=== PATIENT | male | born 1940 | race Caucasian/White ===

== ENCOUNTER 2016-11-28 11:20 | Outpatient (CLI) | payer MEDICARE, OTHER ==
[~2016-11-28] VITALS: Ht 177.8 cm; Wt 81.8 kg
--- NOTE | ~2016-11-28 | HEMODYNAMI ---
PATIENT:JOHANNY JAY MEDICAL RECORD: [id number] : 44 LOCATION:DLondonCAT ADMISSION DATE: 11/28/16 Generatedon:11/28/201614:51 Patient name: JOHANNY JAY Patient #: [id number] SSN: : 1940 Date of study: 11/28/2016 Page: Of Hemodynamic Procedure Report Patient Data Patient Demographics Procedure consent was obtained First Name: JOHANNY Gender: Male Last Name: MISTY : 1940 [facility] Initial: S Age: 76 year(s) Patient #: [id number] Race: Additional ID: [id number] Contact details Address: [address] [place] [address] DRIVE State: [place] City: [facility] Zip code: [address] Past Medical History Allergies: No known allergies Admission Admission Data Admission Date: 11/28/2016 Admission Time: 11:20 Lab Results Lab Result Date: 11/28/2016 Lab Result Time: 0:00 Biochemistry Name Units Result Min Max Creatinine mg/dl 1.2 --(---*)-- 0.6 1.3 CBC Name Units Result Min Max Hemoglobin g/dl 15.2 --(-*--)-- 13.5 17.5 Procedure Procedure Types Cath Procedure Diagnostic Procedure [facility] w/Coronaries PCI Procedure Coronary Stent Initial Miscellaneous Procedures Moderate Sedation up to 45 minutes Procedure Description Procedure Date Procedure Date: 11/28/2016 Procedure Start Time: 14:21 Procedure End Time: 14:50 Procedure Staff Name Function Brendan Ramirez MD Performing Physician Ld Scanlon RT Scrub Harsh Vyas RN Nurse Yamilka Cowart RT Monitor Procedure Data Cath Procedure Fluoroscopy Diagnostic fluoroscopy Total fluoroscopy Time: 8.8 time: 8.8 min min Diagnostic fluoroscopy Total fluoroscopy dose: 917 dose: 917 mGy mGy Contrast Material Contrast Material Type Amount (ml) Isovue 300 150 Entry Location Entry Primary Successful Side Size Upsize Upsize Entry Closure Succes sful Closure Location (Fr) 1 (Fr) 2 (Fr) Remarks Device Remarks Femoral Right 5 Fr 6 Fr Exoseal artery Short Estimated blood loss: 10 ml Diagnostic catheters Device Type Used For End Catheter Placement Cordis 5Fr JL 4.0 Left Coronary Catheter (MP) Angiography Cordis 5Fr 3DRC Catheter Right Coronary (MP) Angiography Cordis 5Fr Pigtail LV Angiography Catheter (MP) Procedure Complications No complications Procedure Medications Medication Administration Route Dosage Oxygen NC 2 l/min Heparin Flush Bag added to field 2 bags (1000units/500ml NS) 0.9% NaCl I.V. 100 ml/hr Fentanyl I.V. 50 mcg Versed I.V. 1 mg Fentanyl I.V. 50 mcg Versed I.V. 1 mg Heparin Bolus I.V. 5000 units Fentanyl I.V. 50 mcg Integrilin (Bolus I.V. 7.3 ml 2mg/ml) Brilinta P.O. 180 mg Hemodynamics Rest HGB: 15.2 (g/dl) Heart Rate: 69 (bpm) Pressure Samples Time Site Value (mmHg) Purpose Heart Use Rate(bpm) 14:29 LV 144/12,39 EDP 53 14:29 AO 142/90(112) Pullback 75 14:29 LV 129/23,18 Pullback 75 Gradients Valve Time Site 1 Site 2 Mean SEP/DFP Peak To Heart Use (mmHg) (sec/min) Peak Rate (mmHg) (bpm) Aortic 14:29 LV AO 0 8 0 75 129/23,18 142/90(112) Calculations Valve P-P Mean Valve Index Valve Source Name Gradient Area Flow (cm2) Aortic 0 0 0 0 Snapshots Pre Cath Intra NCS Post Cath Vital Signs Time Heart Resp SPO2 etCO2 FM1axim NIBP (mmHg) Rhythm Pain Sedation Rate (ipm) (%) (mmHg) (mmHg) Status Level (bpm) 13:58:21 68 18 98 0 0 148/88(123) NSR 0 (11) 10(A) , No pain 14:02:35 72 17 99 0 0 137/85(116) NSR 0 (11) 10(A) , No pain 14:06:46 69 17 99 0 0 126/85(113) NSR 0 (11) 10(A) , No pain 14:10:56 67 16 96 0 0 133/81(115) NSR 0 (11) 9(A) , No pain 14:15:06 78 16 96 0 0 134/86(99) NSR 0 (11) 9(A) , No pain 14:19:14 71 17 95 0 0 139/93(101) NSR 0 (11) 9(A) , No pain 14:23:26 70 19 96 0 0 126/87(108) NSR 0 (11) 9(A) , No pain 14:27:34 72 18 95 0 0 138/88(115) NSR 0 (11) 9(A) , No pain 14:31:48 75 19 97 0 0 128/81(102) NSR 0 (11) 9(A) , No pain 14:36:00 77 18 95 0 0 117/73(104) NSR 0 (11) 9(A) , No pain 14:40:03 75 18 96 0 0 127/85(104) NSR 0 (11) 9(A) , No pain 14:44:12 78 18 98 0 0 122/87(108) NSR 0 (11) 9(A) , No pain 14:47:52 75 18 97 0 0 130/76(101) NSR 0 (11) 9(A) , No pain Medications Time Medication Route Dose Verified Delivered Reason Notes Effectiveness by by 13:58:43 Oxygen NC 2 Harsh Harsh Per physician l/min Asael Vyas RN RN 13:58:53 Heparin Flush added 2 Harsh Harsh used for Bag to bags Asael Vyas RN procedure (1000units/500ml field RN NS) 13:59:03 0.9% NaCl I.V. 100 Ahrsh Harsh Per physician ml/hr Asael Vyas RN RN 14:04:20 Fentanyl I.V. 50 Harsh Harsh for sedation mcg Asael Vyas RN RN 14:04:28 Versed I.V. 1 mg Harsh Harsh for sedation Asael Vysa RN RN 14:08:07 Fentanyl I.V. 50 Harsh Harsh for sedation mcg Asael Vyas RN RN 14:08:12 Versed I.V. 1 mg Harsh Harsh for sedation Asael Vyas RN RN 14:32:33 Heparin Bolus I.V. 5000 Harsh Harsh for units Asael Vyas RN anticoagulation RN 14:32:40 Integrilin I.V. 7.3 Harsh Harsh for wasted (Bolus 2mg/ml) ml Asael Vyas RN antiplatelet 2.7mL of RN therapy integrilin bolus 14:32:40 Fentanyl I.V. 50 [facility] House for sedation mcg Asael Vyas RN RN 14:46:47 Brilinta P.O. 180 [facility] for mg Asael Vyas RN antiplatelet RN therapy Procedure Log Time Note 13:35:05 Harsh Vyas RN sent for patient. Start room use. 13:41:09 Lab Result : Creatinine 1.2 mg/dl 13:41:09 Lab Result : Hemoglobin 15.2 g/dl 13:50:12 Time tracking: Regular hours 13:50:16 Plan of Care:Hemodynamics will remain stable., Cardiac rhythm will remain stable., Comfort level will be maintained., Respiratory function will remain adequate., Patient/ family verbilizes understanding of procedure., Procedure tolerated without complication., Recovers from procedure without complications.. 13:50:29 Patient received from Pre/Post Procedure Room to [facility] 1 Alert and oriented. Tansferred to table in Supine position. 13:50:30 Warm blankets applied, and juan hugger turned on for patient comfort. 13:50:30 Correct patient and procedure confirmed by team. 13:50:32 Signed procedure consent form obtained from patient. 13:50:32 ECG and BP/O2 sat monitors applied to patient. 13:50:33 Full Disclosure recording started 13:57:13 Vital chart was started 13:58:31 Rhythm: sinus rhythm 13:58:43 Oxygen 2 l/min NC was administered by Harsh Vyas RN; Per physician; 13:58:53 Heparin Flush Bag (1000units/500ml NS) 2 bags added to field was administered by Harsh Vyas RN; used for procedure; 13:59:03 0.9% NaCl 100 ml/hr I.V. was administered by Harsh Vyas RN; Per physician; 13:59:15 H&P Date Dictated: 11/21/2016 Within 30 days and on chart., H&P Addendum completed by physician on day of procedure. (MUST COMPLETE FOR ALL OUTPATIENTS). 13:59:16 Pre-procedure instructions explained to patient. 13:59:17 Pre-op teaching completed and patient verbalized understanding. 13:59:19 Family in waiting room. 13:59:24 Patient NPO since Midnight. 13:59:36 Patient allergic to No known allergies 13:59:43 Is the patient allergic to Iodine/contrast media? No. 13:59:45 Is patient on blood thinner?No 13:59:58 Patient diabetic? No. 14:00:03 Previous problem with sedation/anesthesia? No ? 14:00:04 Snore? Yes 14:00:05 Sleep apnea? No 14:00:06 Deviated septum? No 14:00:08 Opens mouth fully? Yes 14:00:09 Sticks out tongue? Yes 14:00:12 Airway obstruction? No ? 14:00:14 Dentures? Yes In 14:00:18 Pre procedure: right dorsailis pedis pulse 2+ Normal; easily identifiable; not easily obliterated 14:00:19 Modified Jaylen's test Ulnar > 7 seconds. 14:00:22 Patient pain scale 0/10 ?. 14:00:26 IV patent on arrival in left hand with 0.9% NaCl at [facility]. 14:00:30 Lab results completed and on chart. 14:00:36 Right groin area was prepped with chlora-prep and draped in sterile fashion 14:00:37 Alarms reviewed by R. N. 14:00:37 Sharps counted by scrub and verified by R.N. 14:00:40 Use device set Femoral Dx 14:00:41 Acist Syringe opened to sterile field. 14:00:42 Bag Decanter opened to sterile field. 14:00:42 Medline Cath Pack opened to sterile field. 14:00:43 Terumo 5Fr [place] Sheath opened to sterile field. 14:00:43 [facility] 260cm J .035 wire opened to sterile field. 14:00:44 Acist Hand Control opened to sterile field. 14:00:45 Acist Manifold opened to sterile field. 14:00:45 Diagnostic Infinity 5Fr Multipack catheter opened to sterile field. 14:00:46 Tegaderm 4 x 4 opened to sterile field. 14:03:39 Final Timeout: patient, procedure, and site verified with staff and physician. All members of the team are in agreement. 14:03:43 Right groin site verified by team. 14:03:50 Physical assessment completed. ASA score P 2 - A patient with mild systemic disease as per Brendan Ramirez MD. 14:03:53 Sedation plan: IV Moderate Sedation Versed, Fentanyl 14:04:00 Baseline sample Acquired. 14:04:20 Fentanyl 50 mcg I.V. was administered by Harsh Vyas RN; for sedation; 14:04:28 Versed 1 mg I.V. was administered by Harsh Vyas RN; for sedation; 14:08:07 Fentanyl 50 mcg I.V. was administered by Harsh Vyas RN; for sedation; 14:08:12 Versed 1 mg I.V. was administered by Harsh Vyas RN; for sedation; 14:20:12 Procedure started. 14:21:09 Local anesthetic to right femoral artery with Lidocaine 2% by Brendan Ramirez MD.INITIAL ACCESS ONLY 14:21:48 A 5 Fr sheath was inserted into the Right Femoral artery 14:23:45 A Cordis 5Fr JL 4.0 Catheter (MP) was advanced over the wire and used for Left Coronary Angiography. 14:27:11 Catheter removed. 14:27:17 A Cordis 5Fr 3DRC Catheter (MP) was advanced over the wire and used for Right Coronary Angiography. 14:27:36 Catheter removed. 14:28:34 A Cordis 5Fr Pigtail Catheter (MP) was advanced over the wire and used for LV Angiography. 14:29:28 LV gram done using SHIRLEY 14:29:32 Injector settings: Ml/sec: 10, Volume: 20, 14:29:38 EF : 25 % 14:29:59 Catheter removed. 14:30:12 [facility] BasixCompak Inflation Kit opened to sterile field. 14:30:30 Terumo 6Fr [place] Sheath opened to sterile field. 14:30:30 Gaytan [place] 300cm 0.014 guide wire opened to sterile field. 14:31:03 Medtronic Launcher 6Fr EBU 4.0 guide catheter opened to sterile field. 14:31:09 Sheath upsized to a 6 Fr Short. 14:31:22 6 Fr EBU 4.0 guide catheter was inserted over the wire 14:32:33 Heparin Bolus 5000 units I.V. was administered by Harsh Vyas RN; for anticoagulation; 14:32:40 Integrilin (Bolus 2mg/ml) 7.3 ml I.V. was administered by Harsh Vyas RN; for antiplatelet therapy; wasted 2.7mL of integrilin bolus 14:32:40 Fentanyl 50 mcg I.V. was administered by Harsh Vyas RN; for sedation; 14:34:09 [place] wire advanced. 14:38:11 Wire removed. unable to cross lesion. 14:38:54 Gaytan Whisper J 300cm 0.014 guide wire opened to sterile field. 14:39:03 Whisper wire advanced. 14:42:40 Inflation Number: 1 A JolieBoxtronic Integrity 3.0 X 15 stent was prepped and advanced across the Mid CX. The stent was deployed at 14 DARCY for 0:30 (min:sec). 14:43:29 Stent catheter was removed intact over wire. 14:43:29 Wire removed. 14:43:30 Guide catheter removed. 14:43:46 Sheath removed intact; hemostasis achieved with Exoseal to the Right Femoral artery. 14:43:53 Cordis 6Fr Exoseal opened to sterile field. 14:43:56 Procedure ended.(Physican Out) 14:44:34 Fluoroscopy time 08.80 minutes. 14:44:38 Flurop Dose total: 917 14:44:38 Fluoroscopy dose: 917 mGy 14:44:42 Contrast amount:Isovue 300 150ml. 14:44:43 Sharps counted by scrub and verified by R.N. 14:44:45 Insertion/operative site no bleeding no hematoma. 14:44:50 Post-op/insertion site Right Femoral artery dressed using a 4 x 4 and Tegaderm. 14:44:53 Post right femoral artery:stable, clean and dry 14:44:57 Post Procedure Pulses reassessed and unchanged 14:45:01 Post-procedure physical assessment completed. ASA score P 2 - A patient with mild systemic disease as per Brendan Ramirez MD. 14:45:04 Post procedure rhythm: unchanged. 14:45:06 Estimated blood loss: 10 ml 14:45:08 Post procedure instruction explained to patient.Patient verbalizes understanding. 14:45:08 Patient needs reinforcement of post procedure teaching. 14:45:21 Procedure type changed to Cath procedure, Diagnostic procedure, LHC, LHC w/Coronaries, PCI procedure, Coronary Stent Initial, Miscellaneous Procedures, Moderate Sedation up to 45 minutes 14:45:25 Procedure Complication : No complications 14:45:29 See physician's report for complete and final results. 14:46:47 Brilinta 180 mg P.O. was administered by Harsh Vyas RN; for antiplatelet therapy; 14:48:01 Procedure and supply charges have been captured, reviewed, submitted and are correct. 14:50:34 Vital chart was stopped 14:50:36 Report given to Pre/Post Procedure Room. 14:50:41 Patient transfered to Pre/Post Procedure Room with Stretcher. 14:50:50 Procedure ended. 14:50:50 Full Disclosure recording stopped 14:50:56 End room use (Document Last) Intervention Summary Intervention Notes Time ActionType Lesion and Equipment Action# Pressure Duration Attributes Used 14:42:40 Place stent Mid CX Medtronic 1 14 00:30 Integrity 3.0 X 15 stent Device Usage Item Name Manufacture Quantity Catalog Hospital Part Current Minimal Lot# / Number Charge Number Stock Stock Serial# Code Acist Acist 1 14459 193242 212504 700016 20 Syringe Medical Systems Inc Bag Microtek 1 2002S 747167 09885 411942 5 Sellbox. Medline Cardinal 1 [id number] 140163 05334 859735 5 Cath Pack Health Terumo 5Fr Terumo 1 QVM574 853695 962478 960499 [address] [place] [address] [facility] 1 292799 275650 935590 726728 30 260cm J .035 wire Acist Hand Acist 1 40290 761590 900575 277603 5 56.com Medical Systems Inc Acist Acist 1 41864 080460 092964 926410 5 Totango Medical Systems Inc Diagnostic Cardinal 1 [id number] 233291 17839 678016 30 Infinity Health 5Fr Multipack catheter Tegaderm 4 3M 1 1626W 001388 520103 851004 5 x 4 Cordis 5Fr Cardinal 1 473979 5 JL 4.0 Health Catheter (MP) Cordis 5Fr Cardinal 1 189963 5 3DRC Health Catheter (MP) Cordis 5Fr Cardinal 1 143003 5 Pigtail Health Catheter (MP) Merit Merit 1 EP2662 039326 638612 930860 15 Geoli.st Classifieds Medical Inflation Kit Terumo 6Fr Terumo 1 CHP315 401639 259422 457687 40 [place] Sheath Guides.co 1 [id number] 958428 018487 236354 1 [place] Vascular 300cm 0.014 guide wire Medtronic Medtronic 1 [id number] 466974 17202 581371 1 Launcher 6Fr EBU 4.0 guide catheter [facility] 1 [id number] 119008 598851 635098 5 Whisper J Vascular 300cm 0.014 guide wire Medtronic Medtronic 1 [id number] 347817 343179 4 [id number] Integrity 3.0 X 15 stent Cordis 6Fr Cardinal 1 EX600 048152 121739 762829 10 [facility] [place] Signature Audit Anderson Stage Time Signature Unsigned Intra-Procedure 11/28/2016 Yamilka 2:51:19 PM Counts RT(R) Signatures Monitor : Yamilka Signature : Counts RT Date : Time : [address] [address]
[2016-11-28] MEDS ORDERED: FLOMAX0.4 MG PO (12:28)
[2016-11-28 12:32] LABS: BASOPHILS 0.3 % (0-2); EOSINOPHILS 4.8 % (0-7); HEMATOCRIT 45.6 % (42.0-54.0); HEMOGLOBIN 15.2 g/dL (13.5-17.5); IMMATURE GRANULOCYTES 0.1 % (0-5); MCHC 33.3 g/dL (31.0-37.0); MCV 89.9 fL (80.0-100.0); MEAN PLATELET VOLUME 10.8 fL (7.4-10.4); MONOCYTES 12.2 % (2-11); NEUTROPHILS 52.6 % (40-80); PLATELET COUNT 230 10x3/uL (130-400); RBC 5.07 10x6/uL (4.20-6.10); RDW 13.8 % (11.5-14.5); WBC 6.8 10x3/uL (4.8-10.8)
[2016-11-28 12:35] VITALS: BP 148/70; Ht 177.8 cm; Wt 81.8 kg
[2016-11-28 12:40] LABS: ANION GAP 13.7 mmol/L (8-16); CALCIUM 9.6 mg/dL (8.5-10.1); CARBON DIOXIDE 29.9 mmol/L (21.0-32.0); CREATININE - SERUM 1.2 mg/dL (0.6-1.3); POTASSIUM - SERUM 4.6 mmol/L (3.5-5.1)
--- NOTE | 2016-11-28 15:15 | NUR ---
RIGHT GROIN CDI, NO HEMATOMA OR BLEEDING NOTED, AT SIDE
[2016-11-28] MEDS ORDERED: HYZAAR 50-12.51 TAB PO (15:28)
[2016-11-28] MEDS ORDERED: BRILINTA90 MG PO (15:28)
--- NOTE | 2016-11-28 15:45 | NUR ---
NO CHANGES TO RIGHT GROIN, AT SIDE
--- NOTE | 2016-11-28 19:00 | NUR ---
IV D'C WITH CATH TIP INTACT, WRITTEN AND VERBAL INSTRUCTIONS GIVEN TO PT AND , UNDERSTOOD. DENIES CHEST PAIN, RIGHT GROIN CDI-NO HEMATOMA OR BLEEDING, SOFT TO TOUCH. D'C HOME
--- NOTE | 2016-11-30 12:52 | OP ---
PATIENT NAME: JOHANNY JAY MEDICAL RECORD: [id number] :44 LOCATION:D.CAT ADMISSION DATE: SURGEON: DO BABCOCK MD DATE OF OPERATION: 11/28/2016 PROCEDURES: Left heart catheterization, selective coronary angiography, right femoral artery approach. CATHETERS: A 5-Pakistani sheath, 5/4 left and right Moshe, 5/4 pig. The procedure was well tolerated. The patient was returned to the nelson, sheath removed. ExoSeal device was placed. FINDINGS: Left ventriculography in 30-degree SHIRLEY view shows global hypokinesis, reduced EF 25%-30%. CORONARY ANATOMY: Left main: Left main is free of disease. LAD: Fills for a short period of time and is totally occluded, fills via vhfg-ek-sete collaterals. CIRCUMFLEX: Large, dominant system with a large OM1, has about 80% stenosis in its mid portion. RIGHT CORONARY ARTERY: Has luminal irregularities. IMPRESSION: Totally occluded left anterior descending, not amenable to intervention. PLAN: Intervention of the circumflex momentarily. DESCRIPTION: A 5-Pakistani sheath was changed for a 6-Pakistani sheath. An XB LAD guiding catheter provided good guide catheter support followed by initially, [place] XT wire has unable to cross into the OM. Next, we placed a 300 cm Whisper wire, crossed the 80% stenosis down to this portion of vessel. Stent deployed was a 3.0 x 15 mm Integrity [id number] stent up to 14 atmospheres for 45 seconds. Final injection shows excellent resolution of 80% stenosis, no significant residual. EMELYN flow was 3 throughout the procedure. Integrilin was used in the case. Sheath closed with ExoSeal device. Brilinta was loaded in the lab. The patient was started on losartan for ischemic cardiomyopathy. Further recommendations based on clinical course. TRANSINT:[id number] Voice Confirmation ID: [id number] DOCUMENT ID: [id number] DO BABCOCK MD at 1252 CC: [id number] DICTATION DATE: 11/28/16 1451 LEGAL PARAPROFESSIONAL: 11/29/16 0036 DEP CLI 11/28/16 [place] [id number] [place] [address]
== END 2016-11-28 19:20 | disposition home or self-care (01) ==
LOC: D.CATH 11:20
PROVIDERS: Internal Medicine Interventional Cardiology
DX: I25.119 Atherosclerotic heart disease of native coronary artery with unspecified angina pectoris (principal); I25.5 Ischemic cardiomyopathy

== ENCOUNTER → 2017-01-10 10:15 | Outpatient (CLI) | payer MEDICARE, OTHER ==
[2016-11-28 12:35] VITALS: BMI 25.8
[~2017-01-10 10:15] MED LIST: BRILINTA90 MG PO; FLOMAX0.4 MG PO; HYZAAR 50-12.51 TAB PO
== END | disposition home or self-care (01) ==
LOC: D.MRI 10:15
DX: M54.16 Radiculopathy, lumbar region (principal)

== ENCOUNTER 2017-02-07 11:24 | Day surgery (SDC) | payer MEDICARE, OTHER ==
[2017-02-06 17:09] LABS: BASOPHILS 0.5 % (0-2); EOSINOPHILS 3.5 % (0-7); HEMATOCRIT 45.9 % (42.0-54.0); HEMOGLOBIN 15.4 g/dL (13.5-17.5); IMMATURE GRANULOCYTES 0.3 % (0-5); LYMPHOCYTES 25.6 % (15-50); MCH 30.3 pg (26.0-34.0); MCHC 33.6 g/dL (31.0-37.0); MCV 90.4 fL (80.0-100.0); MEAN PLATELET VOLUME 10.3 fL (7.4-10.4); MONOCYTES 10.9 % (2-11); NEUTROPHILS 59.2 % (40-80); RBC 5.08 10x6/uL (4.20-6.10); RDW 13.8 % (11.5-14.5); WBC 9.5 10x3/uL (4.8-10.8)
[2017-02-06 17:32] LABS: ANION GAP 12.6 mmol/L (8-16); CARBON DIOXIDE 29.5 mmol/L (21.0-32.0); CREATININE - SERUM 1.1 mg/dL (0.6-1.3); POTASSIUM - SERUM 4.1 mmol/L (3.5-5.1)
[2017-02-06 17:36] LABS: PLATELET COUNT 321 10x3/uL (130-400)
[2017-02-06 17:37] LABS: APPEARANCE CLEAR (CLEAR); COLOR YELLOW (YELLOW); SPECIFIC GRAVITY 1.015 (1.005-1.020)
[2017-02-06 17:38] LABS: BILIRUBIN NEGATIVE (NEGATIVE); GLUCOSE NEGATIVE (NEGATIVE); KETONE NEGATIVE (NEGATIVE); LEUKOCYTE ESTERASE NEGATIVE (NEGATIVE); NITRITE NEGATIVE (NEGATIVE); PROTEIN NEGATIVE (NEGATIVE); UROBILINOGEN NORMAL (NORMAL)
[~2017-02-07] VITALS: Ht 180.3 cm; Wt 81.8 kg
[2017-02-07 10:50] VITALS: BP 132/82; BMI 25.1
[~2017-02-07 11:24] MED LIST changes: +ASPIRIN81 MG PO
--- NOTE | 2017-02-07 19:09 | HP ---
PATIENT: JOHANNY JAY MEDICAL RECORD: [id number] ACCOUNT: [id number] LOCATION:D.MS Danielle2228 : 44 ADMISSION DATE: 02/07/17 HISTORY AND PHYSICAL EXAMINATION CHIEF COMPLAINT: Back pain. HISTORY OF PRESENT ILLNESS: This is a pleasant elderly white male, who presented to our office with right lower extremity pain. He rates his pain 9/10 for the past month, throbbing, constant. He has numbness in his right great toe and calf associated with weakness. He has tried PT injections and has had no relief for pain. PAST MEDICAL HISTORY: Significant for a stent being placed in July of 2016 with no recurrent chest pain. PAST SURGICAL HISTORY: The stent and a right shoulder repair. SOCIAL HISTORY: He is . He denies any alcohol or tobacco use. FAMILY DOCTOR: Dr. Tobin and Dr. Tobin, Dr. Ramirez for cardiology. ALLERGIES: None. CURRENT MEDICATIONS: Tamsulosin for prostate. REVIEW OF SYSTEMS: He denies any recent chest pain, shortness of breath or weight changes. PHYSICAL EXAMINATION: GENERAL: This is an alert, oriented male in no acute distress. HEENT: Normocephalic. Pupils are equal, reactive to light. CHEST: Clear to auscultation. HEART: S1 and S2. ABDOMEN: Soft. EXTREMITIES: He has a slight limp in his right leg. He has decreased sensation in the right leg. His right dorsiflexion strength is 4/5. IMPRESSION: Right L4-L5 herniated nucleus pulposus. PLAN: A right L4-L5 laminectomy and discectomy. He has been told to hold his aspirin. The risk and benefits of surgery have been explained to him in detail. Risks include bleeding, failure to relieve symptoms, problems with anesthesia and . Time was allowed for questions, questions were answered. The patient wishes to proceed with surgery. TRANSINT:[id number] Voice Confirmation ID: [id number] DOCUMENT ID: [id number] Dictated By: LAURI GRANADOS I have interviewed/examined the above patient and agree with these documented findings. HISTORY AND PHYSICAL [id number] JOHANNY JAY MIGUEL ÁNGEL WISE MD at 1909 at 1031 CC: [id number] DICTATION DATE: 02/06/17 1612 HEALTH INFORMATICS SPECIALIST: 02/06/17 1837 [address] [place] [id number] [place] [id number]
[2017-02-07 19:57] VITALS: BP 151/86
[2017-02-07] MEDS ORDERED: MULTIPLE VITAMI1 TA1 PO (19:57)
--- NOTE | 2017-02-07 20:13 | NUR ---
RECIEVED FROM OUTPATIENT OR VIA BED. ALERT,ORIENTED X 3. RESP EVEN AND UNALBORED. IV INFUSING TO RIGHT WRIST AT 50 CC/HR WITHOUT REDNESS OR EDEMA NOTED. INCISION TO LOWER BACK WITHOUT DRAINAGE NOTED. MZAA. NO DEFICITES NOTED. CL IN REACH. AT BEDSIDE.
[2017-02-07 23:04] VITALS: BP 138/78; Ht 180.3 cm; Wt 81.8 kg
--- NOTE | 2017-02-07 23:10 | NUR ---
RN NOTE: ADMISSION ASSESSMENT COMPLETE. O2 TURNED DOWN TO 1L VIA NC...WEANING OFF...SPO2 99% AT THIS ASSESSMENT. ADDED HUMIDIFICATION TO O2 PER C/O NASAL DRYNESS. INCISION ON LUMBAR REGION OF BACK WELL APPROXIMATED WITH DERMABOND WITH NO DRAINAGE. WILL CONTINUE TO MONITOR CLOSELY FOR NEEDS. CALL LIGHT WITHIN REACH.
[2017-02-08 04:00] VITALS: BP 122/72
--- NOTE | 2017-02-08 04:09 | NUR ---
RESTING QUIETLY. NO DISTRESS NOTED. CL IN REACH
--- NOTE | 2017-02-08 06:34 | OP ---
PATIENT NAME: CYRIL JAY MEDICAL RECORD: [id number] :44 LOCATION:D.MS Castro.2228 ADMISSION DATE: SURGEON: MIGUEL ÁNGEL WISE MD DATE OF OPERATION: 02/07/2017 PREOPERATIVE DIAGNOSIS: Right L5 radiculopathy. POSTOPERATIVE DIAGNOSIS: Right L5 radiculopathy. PROCEDURES PERFORMED: 1. Right L4 laminotomy for L4-L5 discectomy. 2. Use of intraoperative microscope with microdissection techniques. FINDINGS: A bulging disc; no durotomy. ESTIMATED BLOOD LOSS: Minimal. COMPLICATIONS: None apparent. SPECIMENS: None. HISTORY OF PRESENT ILLNESS: Cyril Jay is a pleasant 76-year-old gentleman who presented as an outpatient with severe right lower extremity pain consistent with L5 predominant radiculopathy. Imaging was consistent with bulging disc on the right side at L4-L5 with nerve root compression. I had an extensive discussion with him regarding risks, benefits and options of continued conservative therapy versus operative intervention in the form of a microdiscectomy and nerve root decompression. He opted to undergo the operative intervention. The risks and benefits discussed with him. PROCEDURE: Mr. Jay was identified by anesthesia team, transferred to operative theater where general endotracheal anesthesia commenced and all appropriate lines and tubes were placed. He was gently transferred over in the prone position on the operative table with his chest on chest bolsters. His pressure points were padded. His arms were placed in superman position and eyes were accounted for by anesthesia team. The lumbar region was prepped and draped in usual sterile fashion. A timeout was performed and agreed to by those present prior to start of procedure. The patient did receive IV antibiotics prior to the start of the procedure. Using a spinal needle, the L4-L5 laminar facet junction was identified. An incision was marked and infiltrated with 1% lidocaine with epinephrine. A #10 blade was used to make the initial skin incision. Bovie electrocautery was used to perform a right L4-L5 hemilaminotomy, medial facetectomy exposure. A hemilaminectomy self-retaining retractor was then introduced. The right L4 lamina and partial aspect of the medial facet was drilled away with a high-speed matchstick drill and Kerrison rongeurs. The underlying ligamentum flavum was identified and the disc space was identified as well. Lateral x-ray was used to confirm the appropriate level. The annulus was coagulated with bipolar electrocautery and a cruciate incision was made in the disc. Using a combination of pituitary rongeurs and dissectors, the discectomy was carried out. The dissectors were extensively used to mobilize disc that had migrated inferiorly back to the annulotomy site and several fragments were removed. There was no significant nerve root compression or free disc fragments remaining at the time of closure. Copious amount of irrigation was used and the annulotomy site was bipolared with the bipolar electrocautery. Copious amount of irrigation was used and the fascia OPERATIVE REPORT [id number] CYRIL JAY S was reapproximated with 3 interrupted 2-0 Vicryl sutures. The subdermal region was closed with an inverted interrupted 3-0 Vicryl sutures and the skin was closed with a running 4-0 subcuticular Monocryl. Dermabond skin dressing was placed after wet and dry dressings were used to clean the incision. The patient tolerated the procedure well without any apparent complications. There was no durotomy. All sponge and needle counts were correct times 2 at the end of the case. I discussed the procedure with his immediately postoperatively in the waiting area and all of her questions were answered. TRANSINT:[id number] Voice Confirmation ID: [id number] DOCUMENT ID: [id number] MIGUEL ÁNGEL WISE MD at 0634 CC: [id number] DICTATION DATE: 02/07/171912 HIDE SPREADER: 02/07/17 2141 [facility] [address] [place] [id number]
[2017-02-08] MEDS ORDERED: VALIUM 2 MG TAB2 MG PO (06:56)
[2017-02-08] MEDS ORDERED: HYDROCODON-ACE1 EAC7 PO (06:57)
--- NOTE | 2017-02-08 07:15 | NUR ---
AWAKE AND ALERT AT THIS TIME. ASSESSMENT PERFORMED PER FLOWSHEET. PROVIDED PT WITH ORANGE JELLO. CALL LIGHT IN REACH, WILL CONTINUE WITH PLAN OF CARE.
[2017-02-08 08:31] VITALS: BP 115/68
--- NOTE | 2017-02-08 09:35 | NUR ---
IV TO RIGHT FOREARM D/C WITH CATH TIP INTACT. D/C HOME WITH AT THIS TIME. DENIES QUESTIONS OR CONCERNS REGARDING D/C. WILL CONTINUE WITH PLAN OF CARE.
== END 2017-02-08 09:39 | disposition home or self-care (01) ==
LOC: D.OPS 11:24 → D.MS 11:24 → D.OPS 12:30 → D.PAN 12:30 → D.MS 19:00 → D.OPS 02-08 09:39
PROVIDERS: Neurological Surgery
DX: M51.26 Other intervertebral disc displacement, lumbar region (principal); I25.10 Atherosclerotic heart disease of native coronary artery without angina pectoris; Z95.5 Presence of coronary angioplasty implant and graft; Z01.812 Encounter for preprocedural laboratory examination

== ENCOUNTER → 2019-06-30 08:51 | Outpatient (CLI) | payer OTHER ==
[2017-02-07 23:04] VITALS: BMI 25.1
[~2019-06-30 08:51] MED LIST changes: +HYDROCODON-ACE1 EAC7 PO; +MULTIPLE VITAMI1 TA1 PO; +VALIUM 2 MG TAB2 MG PO
--- NOTE | 2019-07-03 11:25 | EC ---
PATIENT:JOHANNY JAY DATE OF SERVICE: 06/30/19 SEX: M MEDICAL RECORD: [id number] DATE OF : 44 LOCATION:[facility] AGE OF PATIENT: 78 ADMISSION DATE: 06/30/19 REFERRING PHYSICIAN: INTERPRETING PHYSICIAN: DO BABCOCK MD ECHOCARDIOGRAM REPORT ECHO CHARGES 4 ECHO COMPLETE Date: 06/30/19 CLINICAL DIAGNOSIS: CARDIOMYOPATHY/MURMUR H/O CAD ECHOCARDIOGRAPHIC MEASUREMENTS (adult normal given) AC root (d.<3.7cm) 3.1 cm LV Septum d (<1.2 cm> 0.9 cm Valve Excursion 1.8 cm LV Septum (systole) 1.2 cm Left Atria (s.<4.0cm> 4.5 cm LVPW d(<1.2cm) 1.1 cm RV (d.<2.3cm) 2.7 cm LVPW (sytole) 1.6 cm LV diastole(<5.6CM) 6.7 cm MV E-F(>70mm/sec) cm LV systole 5.4 cm LVOT Diameter 2.1 cm MV exc.(>10mm) cm Est.ejection fraction (50-75%) % DOPPLER: LVIT cm/sec A 71.0 cm/sec E 35.0 cm/sec LA cm/sec RVSP 30.3 mmHg LVOT 61.0 cm/sec AOP1/2T m/s Asc. Ao 124 cm/sec RVOT 55.0 cm/sec RA cm/sec PA 94.0 cm/sec AV Gradient Peak 6.2 mmHg AV Mean 3.6 mmHg AV Area 1.6 cm MV Gradient Peak 3.8 mmHg MV Mean 1.1 mmHg MV Area cm COMMENTS: OP - HC Wooden Box Maker: 1 KATIE LATANYA Costume Mistress: 3 Dr. Ramirez TAPE# PACS Pericardial Effusion N DATE OF SERVICE: Adequate 2D, color flow, spectral Doppler, and M-mode. No LVH. LV internal dimension is dilated. LV is globally hypokinetic with reduced EF, estimated EF 25% to 30%. Aortic valve is sclerosis without evidence of stenosis by Doppler interrogation. Left atrium is dilated at 4.5 cm. Mitral valve shows no prolapse. Mild MR. Right-sided chambers are grossly normal. Mild TR. ECHOCARDIOGRAM REPORT [id number] JOHANNY JAY TRANSINT:[id number] Voice Confirmation ID: [id number] DOCUMENT ID: [id number] DO BABCOCK MD at 1125 CC: [id number] DICTATION DATE: 07/01/19 100 METAL EXPEDITER: 07/01/19 1159 DEP CLI 06/30/19 [place] [id number] [place] [id number]
== END | disposition home or self-care (01) ==
LOC: D.HCCECHO 08:51
PROVIDERS: ATTEND Internal Medicine Interventional Cardiology
DX: I42.9 Cardiomyopathy, unspecified (principal)